=== PATIENT | female | born 1960 | race Caucasian/White ===

== ENCOUNTER 2016-12-20 11:32 | Day surgery (SDC) | payer BC ==
[2016-12-20] MEDS ORDERED: MARCAINE/EPINEPHRINE ONE (12:34)
[2016-12-20] MEDS ORDERED: XYLOCAINE 1 % (PLAIN) ONE (12:34)
[2016-12-20] MEDS ORDERED: KENALOG INJ 40 MG ONE (12:35)
[2016-12-20 14:44] VITALS: BP 138/78
== END 2016-12-20 13:45 | disposition home or self-care (01) | DRG 552 ==
LOC: SURG1 11:32
PROVIDERS: ATTEND Specialist
PROC: 3E0U3BZ Introduction of Anesthetic Agent into Joints, Percutaneous Approach (ICD-10-PCS; 2016-12-20)
PROC: 3E0U33Z Introduction of Anti-inflammatory into Joints, Percutaneous Approach (ICD-10-PCS; principal; 2016-12-20 12:00)
DX: M53.3 Sacrococcygeal disorders, not elsewhere classified (principal)
CPT/HCPCS: 20610; S0020; J2001; J3301